=== PATIENT | female | born 1990 | race Hispanic/Latino ===

== ENCOUNTER 2022-02-14 08:32 | Outpatient (CLI) | payer BC | END 2022-02-14 08:33 | disposition home or self-care (01) | LOC: BICULT 08:32 | PROVIDERS: ATTEND Family Medicine Sports Medicine | DX: N63.25 Unspecified lump in the left breast, overlapping quadrants (principal) ==

== ENCOUNTER 2022-06-04 11:42 | Outpatient (CLI) | payer BC | END 2022-06-04 11:43 | disposition home or self-care (01) | LOC: SCSRAD 11:42 | PROVIDERS: ATTEND Family Medicine Sports Medicine | DX: R20.2 Paresthesia of skin (principal) | CPT/HCPCS: 72040 ==

== ENCOUNTER 2022-08-23 10:50 | Outpatient (CLI) | payer BC | END 2022-08-23 10:51 | disposition home or self-care (01) | LOC: BICULT 10:50 | PROVIDERS: ATTEND Family Medicine Sports Medicine | DX: D24.9 Benign neoplasm of unspecified breast (principal) ==